=== PATIENT | male | born 1965 | race Caucasian/White ===

== ENCOUNTER 2019-03-22 09:24 | Outpatient (CLI) | payer OTHER ==
--- NOTE | 2019-03-22 15:55 | NM ---
NUCLEAR MEDICINE BRAIN IMAGIN03/22/19 HISTORY: Parkinson's disease. TECHNIQUE: DaTscan with axial tomographic images of the brain was obtained three hours following the intravenous administration of 4.6 millicuries Iodine 120 Ioflupane. The patient was pretreated with 130 mg of potassium iodide given orally one hour prior to the injecti on. FINDINGS: There is loss of normal symmetric uptake in the striata bilaterally with loss of the normal appearing crescent shaped focal regions of activity. IMPRESSION: Parkinsonian syndrome. POS: [facility]
== END 2019-03-22 09:25 | disposition home or self-care (01) ==
LOC: NM 09:24
PROVIDERS: ATTEND Psychiatry & Neurology Neurology
DX: G20 Parkinson's disease (principal)
CPT/HCPCS: 78607; A9584